=== PATIENT | female | born 1960 | race Caucasian/White ===

== ENCOUNTER → 2017-07-30 | Outpatient (CLI) | payer OTHER ==
[~2017-07-30] MED LIST: DEXILANT60 MG PO; EFFEXOR 5050 MG/1 T1 PO; EFFIENT5 MG PO; FLEXERIL PO; IBUPROFEN 800800 M1 PO; LEVOTHYROXINE0.05 MG PO; LOPRESSOR25 PO; NORCO 5-325 TA1 EACH PO; OMEPRAZOLE40 MG PO; PERCOCET 5-3251 EACH PO; VALTREX 500 MG500 MG PO; VALTREX1000 MG PO; VANCOMYCIN1 GM/100 M IV; XANAX 0.25 MG0.25 MG PO; ZOLOFT 50 MG TA50 M1 PO; ZOLOFT25 MG PO
== END ==
LOC: MRI 11:18
DX: M47.896 Other spondylosis, lumbar region (principal); M41.86 Other forms of scoliosis, lumbar region; M48.061 Spinal stenosis, lumbar region without neurogenic claudication

== ENCOUNTER → 2018-01-28 | Outpatient (CLI) | payer OTHER | LOC: RAD 09:31 | DX: J98.11 Atelectasis (principal) ==

== ENCOUNTER 2018-04-22 13:34 | Emergency (ER) | payer OTHER ==
[~2018-04-22] VITALS: Ht 160 cm; Wt 81.7 kg
--- NOTE | ~2018-04-22 | EKG ---
[address] [place] [address] ELECTROCARDIOGRAM REPORT Name: MARIYA POTTER Room #: REG [facility]#: [id number] Admission: 04/22/18 Attend Phys: Discharge: Date of : 60 Report #: [id number] THIS REPORT FOR: //name// [facility] ED Test Date: 2018-04-22 Test Time: 13:52:32 Pat Name: MARIYA POTTER Department: Room: Gender: F Glass Presser: [facility] : 1960 Requested By: Preet Wilson Order Number: [id number] MD: Sanjay Edgar Measurements Intervals [place] Rate: 81 P: 38 CT: 133 QRS: 27 QRSD: 79 T: 21 QT: 371 QTc: 431 Interpretive Statements Sinus rhythm No significant abnormality Compared to ECG 03/31/2015 09:49:01 No significant changes Electronically Signed On 04-22-2018 16:55:10 CDT by Sanjay Edgar [email or web address] <ELECTRONICALLY SIGNED> By: Sanjay Edgar MD, [facility] 04/22/18 1655 1352 1352 Sanjay Edgar MD, FACC /EPI
[2018-04-22] MEDS ORDERED: NEURONTIN 300300 M1 PO (13:57)
[2018-04-22 14:34] LABS: URINE BILIRUBIN NEGATIVE (Negative); URINE BLOOD TRACE (Negative); URINE CLARITY CLEAR; URINE COLOR YELLOW; URINE GLUCOSE-RANDOM* NEGATIVE (Negative); URINE KETONES NEGATIVE (Negative); URINE LEUKOCYTES-REFLEX NEGATIVE (Negative); URINE NITRITE-REFLEX NEGATIVE (Negative); URINE PROTEIN (DIPSTICK) NEGATIVE (Negative); URINE SPECIFIC GRAVITY <= 1.005 (1.005-1.035); URINE UROBILINOGEN 0.2 E.U./dl (0.2-1.0)
[2018-04-22 15:18] LABS: ABSOLUTE NEUTROPHILS 5.7 thou/uL (1.4-8.2); EOSINOPHILS 0.4 % (0.0-3.0); HEMATOCRIT 39.9 % (37.0-47.0); HEMOGLOBIN 13.4 gm/dL (12.0-15.0); LYMPHOCYTES 29.1 % (24.0-44.0); MCH 27.5 pg (26.0-34.0); MCHC 33.5 g/dL (28.0-37.0); MCV 82.1 fL (80.0-100.0); MONOCYTES 6.1 % (1.0-8.0); PLATELET COUNT 279 thou/uL (150-400); POLYS 63.4 % (36.0-66.0); RBC 4.86 mil/uL (4.20-5.00); RDW 14.6 % (10.5-14.5)
[2018-04-22 15:27] LABS: ANION GAP 10 mmol/L (7-16); BUN 15 mg/dL (7-18); CALCIUM 10.1 mg/dL (8.5-10.1); CHLORIDE 104 mmol/L (98-107); CO2 23 mmol/L (21-32); CREATININE 0.9 mg/dL (0.6-1.0); GLUCOSE 103 mg/dL (74-106); POTASSIUM 3.8 mmol/L (3.5-5.1); SODIUM 137 mmol/L (136-145)
[2018-04-22 15:36] LABS: TROPONIN-I <0.06 ng/mL (<0.06)
[2018-04-22] MEDS ORDERED: ROBAXIN500 MG PO (20:08)
[2018-04-22] MEDS ORDERED: PROMETHAZINE12.5 M1 PO (20:43)
== END 2018-04-22 20:48 | disposition home or self-care (01) ==
LOC: ER 13:34
PROVIDERS: Emergency Medicine
DX: R07.89 Other chest pain (principal); R20.2 Paresthesia of skin; R42 Dizziness and giddiness; M79.7 Fibromyalgia; M19.90 Unspecified osteoarthritis, unspecified site; Z88.0 Allergy status to penicillin; Z88.2 Allergy status to sulfonamides; Z88.5 Allergy status to narcotic agent; Z91.041 Radiographic dye allergy status; Z88.8 Allergy status to other drugs, medicaments and biological substances; Z87.891 Personal history of nicotine dependence

== ENCOUNTER → 2018-06-13 | Outpatient (CLI) | payer OTHER ==
[~2018-06-13] MED LIST changes: +NEURONTIN 300300 M1 PO; +PROMETHAZINE12.5 M1 PO; +ROBAXIN500 MG PO
--- NOTE | ~2018-06-13 | PATH ---
[facility] [place] [address] PATHOLOGY RPT PROCEDURE Name: MARIYA POTTER Room #: REG [facility]..#: [id number] Admission: 06/13/18 Date of : 60 Discharge: Report #: [id number] Path Case #: [id number] Note [facility] Accession Number: [id number] TESTS RESULT FLAG UNITS REF RANGE LAB Clinician Provided Cytology Information No. of containers..01 Other (Miscellaneous) Source: LEFT THYROID DIAGNOSIS: LEFT THYROID, FINE NEEDLE ASPIRATION NEGATIVE FOR MALIGNANT CELLS. [place] CATEGORY II. SPECIMEN CONSISTS OF ABUNDANT FOLLICULAR CELLS, HEMOSIDERIN-LADEN MACROPHAGES, SCANT COLLOID AND BLOOD. 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 THIS INTERPRETATION INCLUDES EVALUATION OF A CELL BLOCK. Comment: Examination shows abundant macrofollicles and a few microfollicles. There is scant colloid identified as watery and dense forms. Nuclear features of papillary thryoid carcinoma are not identified in the follicular cells. Findings most likely are suggestive of an adenomatoid nodule. A mixed macro - micro follicular adenoma is in the differential diagnosis. Please note sample may not be entirely fulfillment representative. Correlate clinically and follow-up as indicated. Pathologist ICD10: 02 E04.1 Signed out by: 02 Bree Guthrie MD, Pathologist NPI- [id number] Performed by: Ana M Mendoza, Board Runner ([facility]) Gross description: 01 21ML, RED, CLEAR /LCS FLAG LEGEND: L-Low Normal,H-High Normal,LL-Alert Low,HH-Alert High <-Panic Low,>-Panic High,A-Abnormal,AA-Critical Abnormal Performed at: [facility] [address] [facility] [address] [place] [id number] Chilo Chen MD, [address] [address] Bree Guthrie MD, [address] [address] PATHOLOGY RPT PROCEDURE Name: MARIYA POTTER Room #: REG [facility]#: [id number] Admission: 06/13/18 Date of : 60 Discharge: Report #: [id number] Path Case #: [id number] Specimen Comment: A courtesy copy of this report has been sent to Specimen Comment: [phone]. Specimen Comment: Report sent to [facility]imen Comment: A duplicate report has been generated due to demographic updates. Performed at: 01 [facility] [address] [facility] [address], [place], [place] [id number] MD Chilo Chen MD Phone: [phone]
[2018-06-13 08:33] LABS: HEMATOCRIT 39.4 % (37.0-47.0); HEMOGLOBIN 13.5 gm/dL (12.0-15.0); MCH 28.8 pg (26.0-34.0); MCHC 34.2 g/dL (28.0-37.0); MCV 84.2 fL (80.0-100.0); RBC 4.67 mil/uL (4.20-5.00); RDW 14.6 % (10.5-14.5)
[2018-06-13 08:40] LABS: CALCIUM 10.1 mg/dL (8.5-10.1); POTASSIUM 4.2 mmol/L (3.5-5.1)
[2018-06-13 08:45] LABS: PROTIME 9.9 Seconds (9.3-11.4)
== END | disposition home or self-care (01) ==
LOC: ULTRA 08:12
PROVIDERS: Family Medicine
DX: E04.1 Nontoxic single thyroid nodule (principal); Z86.73 Personal history of transient ischemic attack (TIA), and cerebral infarction without residual deficits; Z88.1 Allergy status to other antibiotic agents; Z88.0 Allergy status to penicillin; Z88.8 Allergy status to other drugs, medicaments and biological substances; Z79.899 Other long term (current) drug therapy

== ENCOUNTER → 2018-10-21 | Outpatient (CLI) | payer OTHER | LOC: NUC 13:15 | DX: M15.9 Polyosteoarthritis, unspecified (principal); Z79.52 Long term (current) use of systemic steroids; Z87.310 Personal history of (healed) osteoporosis fracture ==

== ENCOUNTER → 2019-01-26 | Outpatient (CLI) | payer OTHER | LOC: RAD 15:12 | DX: R05 Cough (principal); R06.02 Shortness of breath ==

== ENCOUNTER → 2019-10-08 | Outpatient (CLI) | payer OTHER | LOC: CAT 08:52 | DX: K44.9 Diaphragmatic hernia without obstruction or gangrene (principal); J98.4 Other disorders of lung; K76.0 Fatty (change of) liver, not elsewhere classified; K57.30 Diverticulosis of large intestine without perforation or abscess without bleeding; M41.80 Other forms of scoliosis, site unspecified; M47.819 Spondylosis without myelopathy or radiculopathy, site unspecified; M16.10 Unilateral primary osteoarthritis, unspecified hip ==

== ENCOUNTER → 2020-03-09 | Outpatient (CLI) | payer OTHER | LOC: ULTRA 02-17 08:57 | PROVIDERS: ATTEND Family Medicine | DX: E03.9 Hypothyroidism, unspecified (principal); E07.9 Disorder of thyroid, unspecified ==

== ENCOUNTER → 2020-11-03 | Outpatient (CLI) | payer OTHER | LOC: SJCVCIMAG 07:34 | PROVIDERS: ATTEND Internal Medicine Cardiovascular Disease | DX: R00.0 Tachycardia, unspecified (principal); I49.3 Ventricular premature depolarization; E78.5 Hyperlipidemia, unspecified; E66.9 Obesity, unspecified; Z79.899 Other long term (current) drug therapy; Z87.891 Personal history of nicotine dependence ==

== ENCOUNTER → 2021-06-20 | Outpatient (CLI) | payer OTHER | LOC: MRI 13:10 | PROVIDERS: ATTEND Nurse Practitioner | DX: M51.16 Intervertebral disc disorders with radiculopathy, lumbar region (principal); M48.061 Spinal stenosis, lumbar region without neurogenic claudication; M48.07 Spinal stenosis, lumbosacral region; M25.78 Osteophyte, vertebrae ==

== ENCOUNTER → 2021-08-02 | Outpatient (CLI) | payer OTHER | LOC: SJCVCIMAG 07:28 | PROVIDERS: ATTEND Internal Medicine Cardiovascular Disease | DX: R94.31 Abnormal electrocardiogram [ECG] [EKG] (principal); I49.3 Ventricular premature depolarization; E66.9 Obesity, unspecified; G43.909 Migraine, unspecified, not intractable, without status migrainosus; I95.1 Orthostatic hypotension; E03.9 Hypothyroidism, unspecified; K21.9 Gastro-esophageal reflux disease without esophagitis; E78.5 Hyperlipidemia, unspecified; G40.909 Epilepsy, unspecified, not intractable, without status epilepticus; Z88.5 Allergy status to narcotic agent; Z88.1 Allergy status to other antibiotic agents; Z88.8 Allergy status to other drugs, medicaments and biological substances; Z88.2 Allergy status to sulfonamides; Z88.0 Allergy status to penicillin; Z79.899 Other long term (current) drug therapy; Z87.891 Personal history of nicotine dependence; Z72.89 Other problems related to lifestyle; Z82.49 Family history of ischemic heart disease and other diseases of the circulatory system ==